=== PATIENT | male | born 1980 | race American Indian/Alaskan Native ===

== ENCOUNTER 2017-12-20 23:20 | Emergency (ER) | payer MEDICAID ==
[2017-12-21 00:49] VITALS: TEMP 97.3
--- NOTE | 2017-12-21 00:59 | ED PDOC ---
Arrival/HPI - General Historian: Patient, Police - History of Present Illness Time/Duration: Prior to Arrival Symptom Onset: Gradual Symptom Course: Improving Quality: Unable to Describe Severity Level: 1 Activities at Onset: Rest Context: Street - General Chief Complaint: Alcohol Ingestion Time Seen by Provider: 12/20/17 23:54 - History of Present Illness Narrative History of Present Illness (Text): 12/21/17 00:55 Pt is a 37 yr old male who was picked up on the street by EMS and brought into the ED for alcohol intoxication. Pt states he was visiting [place] for the day and got off the bus at the wrong stop and got lost when the police found him wandering. He states he knows where he is now and how he got to the ED but reports only drinking a few beer today and taking no other substance. Denies drug use, LOC, fever, chest pain, abdominal pain, trauma, shortness of breath, psychiatric condition or any other significant factors (Abbi Page) Past Medical History - Provider Review Nursing Documentation Reviewed: Yes - Travel History Have you recently traveled outside [place] w/in the past 3 mons?: No - Psychiatric Hx Substance Use: Yes Family/Social History - Physician Review Nursing Documentation Reviewed: Yes Family/Social History: Unknown Family HX Smoking Status: Light Smoker < 10 Cigarettes Daily Hx Alcohol Use: Yes Frequency of alcohol use: Socially Hx Substance Use: Yes Substance used: marijuana Allergies/Home Meds Allergies/Adverse Reactions: Allergies No Known Allergies Allergy (Unverified 10/22/15 02:41) Home Medications: Home Meds Medication Instructions Recorded Confirmed Albuterol 0.083% [Albuterol 0.083% PRN 10/22/15 Inhal Chel (2.5 mg/3 ml) UD] No Known Home Med 12/21/17 12/21/17 Review of Systems - Review of Systems Systems not reviewed;Unavailable: Intoxicated Constitutional: Normal. absent: Fatigue, Fevers Eyes: Normal. absent: Vision Changes ENT: Normal Respiratory: Normal. absent: SOB Cardiovascular: Normal. absent: Chest Pain Gastrointestinal: Normal. absent: Abdominal Pain, Stool Changes, Nausea, Vomiting Genitourinary Male: Normal. absent: Dysuria Musculoskeletal: Normal. absent: Arthralgias Skin: Normal Neurological: Normal. absent: Headache Endocrine: Normal Hemo/Lymphatic: Normal Psychiatric: Normal. absent: Anxiety, Depression, Suicidal Ideation Physical Exam - Physical Exam Physical Exam Limitations: Intoxication Vital Signs Reviewed: Yes Temperature: Afebrile Blood Pressure: Normal Pulse: Regular Respiratory Rate: Normal Appearance: Positive for: Well-Appearing, Non-Toxic, Comfortable Pain Distress: None Mental Status: Positive for: Alert and Oriented X 3 - Systems Exam Head: Present: Atraumatic, Normocephalic Pupils: Present: PERRL Extroacular Muscles: Present: EOMI Conjunctiva: Present: Injected Mouth: Present: Moist Mucous Membranes Nose (Internal): Present: Normal Inspection Neck: Present: Normal Range of Motion Respiratory/Chest: Present: Clear to Auscultation, Good Air Exchange. No: Respiratory Distress, Accessory Muscle Use Cardiovascular: Present: Regular Rate and Rhythm, Normal S1, S2. No: Murmurs Abdomen: No: Tenderness, Distention, Peritoneal Signs Back: Present: Normal Inspection Upper Extremity: Present: Normal Inspection. No: Cyanosis, Edema Lower Extremity: Present: Normal Inspection. No: Edema Neurological: Present: GCS=15, CN II-XII Intact, Speech Normal, Motor Func Grossly Intact, Normal Sensory Function Skin: Present: Warm, Dry, Normal Color. No: Rashes Psychiatric: Present: Alert, Oriented x 3, Normal Insight, Normal Concentration , Intoxicated Vital Signs Temp Pulse Resp BP Pulse Ox 12/21/17 06:02 90 16 116/70 100 12/21/17 03:40 95 H 16 112/62 96 12/21/17 00:48 97.3 F L 84 22 105/66 98 Medical Decision Making - Lab Interpretations I have reviewed the lab results: Yes (EtOH 250) Interpretation: All labs normal ED Course and Treatment: 12/21/17 06:10 Pt awake, alert, ambulating with steady gait. In no acute distress, clinically sober. Pt stable for d/c. (Kings Pugh) 12/21/17 00:59 Impression Pt is a 37 yr old male who was picked up on the street by EMS and brought into the ED for alcohol intoxication. Plan EtOH assessment and tox screen Labs assess and dispo Progress Note 12/21/17 01:09 EtOH 250 All other labs WNL A&Ox3 and sitting up in stretcher 12/21/17 01:[address] Pugh (Abbi Page) - Lab Interpretations Lab Results: 12/21/17 01:00 12/21/17 01:00 Lab Results 12/21/17 01:00: Sodium 146, Potassium 4.0, Chloride 107, Carbon Dioxide 23, Anion Gap 20, BUN 11, Creatinine 0.9, Est GFR ( Amer) > 60, Est GFR (Non- Af Amer) > 60, Random Glucose 96, Calcium 8.6, Total Bilirubin 0.3, AST 45, ALT 54, Alkaline Phosphatase 79, Total Protein 7.6, Albumin 4.6, Globulin 3.0, Albumin/Globulin Ratio 1.5 12/21/17 01:00: WBC 6.4, RBC 4.84, Hgb 14.4, Hct 42.9, MCV 88.6, MCH 29.8, MCHC 33.6, RDW 13.2, Plt Count 205, MPV 10.5 12/21/17 01:00: Alcohol, Quantitative 250 H Disposition/Present on Arrival - Present on Arrival Any Indicators Present on Arrival: Yes History of DVT/PE: No History of Uncontrolled Diabetes: No Urinary Catheter: No History of Decub. Ulcer: No History Surgical Site Infection Following: None - Disposition Have Diagnosis and Disposition been Completed?: Yes Disposition Time: 06:00 Patient Plan: Discharge - Disposition Diagnosis: Alcohol abuse Disposition: HOME/ ROUTINE Condition: GOOD Discharge Instructions (ExitCare): Alcohol Abuse and Alcoholism (DC) Forms: [facility] (Nepalese)
[2017-12-21 01:16] LABS: HEMOGLOBIN 14.4 g/dL (14.0-18.0); MEAN CELL VOLUME 88.6 fl (80.0-105.0); MEAN CORPUSCULAR HEMOGLOBIN 29.8 pg (25.0-35.0); MEAN CORPUSCULAR HGB CONC 33.6 g/dl (31.0-37.0); MEAN PLATELET VOLUME 10.5 fl (7.0-11.0); RBC 4.84 10^6/uL (3.5-6.1); RED CELL DISTRIBUTION WIDTH 13.2 % (11.5-14.5); WHITE BLOOD COUNT 6.4 10^3/ul (4.5-11.0)
[2017-12-21 01:24] LABS: ALB/GLOB RATIO 1.5 (1.1-1.8); ALBUMIN 4.6 g/dL (3.0-4.8); ALT/SGPT 54 U/L (7-56); AST/SGOT 45 U/L (17-59); BLOOD UREA NITROGEN 11 mg/dL (7-21); CALCIUM 8.6 mg/dL (8.4-10.5); GFR AFRICAN-AMERICAN > 60; GFR NON-AFRICAN AMERICAN > 60
[2017-12-21 03:41] VITALS: RESP 16
[2017-12-21 06:02] VITALS: BP 116/70; PULSE 90; O2SAT 100
== END 2017-12-21 06:12 | disposition home or self-care (01) ==
LOC: ED 23:20 → MERGE 23:20 → ED 12-21 06:12
DX: F10.10 Alcohol abuse, uncomplicated (principal); Y90.8 Blood alcohol level of 240 mg/100 ml or more